=== PATIENT | female | born 2000 | race Caucasian/White ===

== ENCOUNTER 2021-03-23 15:27 | Emergency (ER) | payer OTHER ==
[~2021-03-23] VITALS: Ht 401.3 cm; Wt 160.6 kg
[2021-03-23 16:10] VITALS: BP 125/77
[2021-03-23] MEDS ORDERED: CYCLOBENZAPRINE5 MG PO (17:53)
== END 2021-03-23 19:22 | disposition home or self-care (01) ==
LOC: ER 15:27
DX: S16.1XXA Strain of muscle, fascia and tendon at neck level, initial encounter (principal); M62.830 Muscle spasm of back; M25.512 Pain in left shoulder; J45.909 Unspecified asthma, uncomplicated; V49.88XA Car occupant (driver) (passenger) injured in other specified transport accidents, initial encounter; Y93.89 Activity, other specified; Y92.413 State road as the place of occurrence of the external cause; Y99.9 Unspecified external cause status

== ENCOUNTER 2021-04-25 15:48 | Inpatient (IN) | payer OTHER ==
[~2021-04-25] VITALS: Ht 182.9 cm; Wt 165.8 kg
[~2021-04-25 15:48] MED LIST: CYCLOBENZAPRINE5 MG PO
[2021-04-25 16:04] VITALS: BP 137/86
[2021-04-25 19:02] LABS: ABSOLUTE NEUTROPHILS 5.5 thou/uL (1.4-8.2); BASOPHILS 0.6 % (0.0-2.0); EOSINOPHILS 10.3 % (0.0-3.0); HEMATOCRIT 33.9 % (37.0-47.0); HEMOGLOBIN 10.7 gm/dL (12.0-15.0); LYMPHOCYTES 13.4 % (24.0-44.0); MCH 23.7 pg (26.0-34.0); MCHC 31.5 g/dL (28.0-37.0); MCV 75.4 fL (80.0-100.0); MONOCYTES 10.2 % (1.0-8.0); PLATELET COUNT 316 thou/uL (150-400); POLYS 65.5 % (36.0-66.0); RDW 15.2 % (10.5-14.5); WBC 8.3 thou/uL (4.0-11.0)
[2021-04-25 19:08] LABS: ANION GAP 5 mmol/L (7-16); BUN 8 mg/dL (7-18); CALCIUM 8.2 mg/dL (8.5-10.1); CHLORIDE 105 mmol/L (98-107); CO2 30 mmol/L (21-32); CREATININE 0.8 mg/dL (0.6-1.0); GLUCOSE 88 mg/dL (74-106); POTASSIUM 3.7 mmol/L (3.5-5.1); SODIUM 140 mmol/L (136-145)
[2021-04-25 19:18] LABS: ALBUMIN 3.1 g/dL (3.4-5.0); SGOT 23 U/L (15-37); SGPT 26 U/L (14-59); TOTAL BILIRUBIN 0.2 mg/dL (0.2-1.0); TOTAL PROTEIN 7.3 g/dL (6.4-8.2); TROPONIN-I <0.06 ng/mL (<0.06)
[2021-04-25 23:14] LABS: BE(vivo) 0.7 mmol/L (-2 to +3); HCO3 26.1 mmol/L (22.0-26.0); PCO2 44.9 mmHg (35.0-45.0); PO2 67.6 mmHg (80.0-100.0); pH 7.382 (7.360-7.450); sO2 93.1 % (92.0-98.0)
[2021-04-26] VITALS (8 sets, daily range): BP systolic 136–168; BP diastolic 86–133
--- NOTE | 2021-04-26 04:40 | NUR ---
NOTIFIED BASSAM MADRID NP OF PATIENT SATURATION LEVEL DROPPING TO 37% ON VENTI MASK. NOTIFIED THAT PATIENT WHILE SLEEPING IS UNABLE TO MAINTAIN SATURAION REGARDLESS OF NC 4.0 OR VENTI MASK. EXERCISE PHYSIOLOGY PROFESSOR PLACING CONSULT FOR PULMONARY AND BIPAP WHILE SLEEPING. RT NOTIFIED FOR BIPAP PLACEMENT
[2021-04-26] MEDS ORDERED: PROAIR HFA8.5 GM INH (06:39)
--- NOTE | 2021-04-26 07:38 | EKG ---
[place] [address] [facility] [place] [address] ELECTROCARDIOGRAM REPORT Name: LILY BUSBY Room #: 204-P [facility] IN M.R.#: [id number] Admission: 04/25/21 Attend Phys: Zaida Jones Discharge: Date of : 01 Report #: [id number] [facility] ED Test Date: 2021-04-25 Test Time: 16:07:18 Pat Name: LILY BUSBY Department: Room: [facility] [place] Gender: F Maintenance Data Analyst: KRISTI : 2000 Requested By: Torri Terry Order Number: [id number] MD: Roney Arora Measurements Intervals [place] Rate: 121 P: 67 UT: 156 QRS: 49 QRSD: 80 T: 18 QT: 317 QTc: 450 Interpretive Statements Sinus tachycardia Probable left atrial enlargement No previous ECG available for comparison Electronically Signed On 04-26-2021 7:38:45 CDT by Roney Arora [email or web address] <ELECTRONICALLY SIGNED> By: Roney Arora MD, [facility] 04/26/21 0738 [id number] [id number] Roney Arora MD, FACC /EPI
--- NOTE | 2021-04-26 07:49 | NUR ---
ARRIVED PER CART FROM ER AT 0545. DENIES COMPLAINTS OF PAIN. STATES SHORTNESS OF AIR IS BETTER LONG O2 ON. ORIENTED TO ROOM AND FLOOR POLICIES. UP WITH STEADY GAIT TO BATHROOM. REVIEWED PLAN OF CARE FOR NOC. CONTINUE TO ASSES.
[2021-04-26 08:49] LABS: HEMATOCRIT 36.2 % (37.0-47.0); HEMOGLOBIN 11.5 gm/dL (12.0-15.0); MCHC 31.7 g/dL (28.0-37.0); MCV 75.6 fL (80.0-100.0); RBC 4.79 mil/uL (4.20-5.00); RDW 14.9 % (10.5-14.5); WBC 4.5 thou/uL (4.0-11.0)
[2021-04-26 09:03] LABS: ALBUMIN 3.1 g/dL (3.4-5.0); CALCIUM 8.5 mg/dL (8.5-10.1); CREATININE 0.7 mg/dL (0.6-1.0); POTASSIUM 3.9 mmol/L (3.5-5.1); TOTAL BILIRUBIN 0.2 mg/dL (0.2-1.0); TOTAL PROTEIN 7.8 g/dL (6.4-8.2)
[2021-04-26 23:52] LABS: URINE BILIRUBIN NEGATIVE (Negative); URINE BLOOD 2+ (Negative); URINE CLARITY CLEAR; URINE COLOR YELLOW; URINE GLUCOSE-RANDOM* NEGATIVE (Negative); URINE KETONES NEGATIVE (Negative); URINE LEUKOCYTES-REFLEX NEGATIVE (Negative); URINE NITRITE-REFLEX NEGATIVE (Negative); URINE PROTEIN (DIPSTICK) NEGATIVE (Negative); URINE UROBILINOGEN 0.2 E.U./dl (0.2-1.0)
[2021-04-27 00:45] VITALS: BP 143/99
[2021-04-27 01:26] LABS: BACTERIA-REFLEX 1-9 Few /HPF (None Seen); CASTS None Seen /LPF (None Seen); CRYSTALS None Seen /LPF (None Seen); SQUAMOUS 0-3 Few /LPF (0-3); URINE RBC 1-2 Rare /HPF (NONE SEEN); URINE WBC-REFLEX 0-5 Rare /HPF (0-5)
[2021-04-27 03:15] VITALS: BP 144/98
[2021-04-27 07:25] VITALS: BP 135/90
--- NOTE | 2021-04-27 07:42 | NUR ---
SLEPT MOST OF SHIFT. UP AD ALEE IN ROOM. ON PERIOD. DENIES COMPLAINTS OF PAIN OR INCREASING SHORTNESS OF AIR. ON 2L/NC. STATES IS FEELING BETTER. WORKING ON GOALS AND PLAN OF CARE FOR NOC. CONTINUE TO ASSES CLOSELY.
--- NOTE | 2021-04-27 10:32 | 2DMMODE ---
[facility] [place] [address] 2 D/M-MODE ECHOCARDIOGRAM Name: LILY BUSBY Room #: 204-P ADM IN M.R.#: [id number] Admission: 04/25/21 Attend Phys: Umesh Peña MD Discharge: Date of : 01 Report #: [id number] REPORT FOR: cc: FAM - Family physician unknown FAM - Family physician unknown Roney Arora MD [facility] ~ APPROVED REPORT Study performed: 04/27/2021 09:40:40 EXAM: Comprehensive 2D, Doppler, and color-flow Echocardiogram Patient Location: Bedside Room #: 204 Status: routine BSA: 2.70 HR: 96 bpm BP: 135/90 mmHg Rhythm: NSR Other Information Study Quality: Adequate Indications SOA 2D Dimensions RVDd: 31.70 mm IVSd: 12.18 (7-11mm) LVOT Diam: 22.53 (18-24mm) LVDd: 52.49 mm PWd: 11.92 (7-11mm) Ascending Ao: 31.36 (22-36mm) LVDs: 35.85 (25-40mm) Aortic Root: 26.10 mm IVC: 20.00 mm Volumes Left Atrial Volume (Systole) Single Plane 4CH: 60.44 mL Single Plane 2CH: 45.64 mL LA ESV Index: 21.00 mL/m2 Aortic Valve AoV Peak Chris.: 1.98 m/s AO Peak Gr.: 15.68 mmHg LVOT Max P.18 mmHg LVOT Max V: 1.24 m/s RAMIN Vmax: 2.50 cm2 [facility] [address] [place] [address] 2 D/M-MODE ECHOCARDIOGRAM Name: LILY BUSBY Room #: 204-P [facility] IN [facility]#: [id number] Admission: 04/25/21 Attend Phys: Umesh Peña MD Discharge: Date of : 01 Report #: [id number] Mitral Valve E/A Ratio: 1.1 MV Decel. Time: 161.74 ms MV E Max Chris.: 1.11 m/s MV A Chris.: 1.05 m/s MV PHT: 46.91 ms IVRT: 78.43 ms Pulmonary Valve PV Peak Chris.: 1.23 m/s PV Peak Gr.: 6.01 mmHg Pulmonary Vein P Vein S: 0.61 m/s P Vein A: 0.37 m/s P Vein D: 0.43 m/s P Vein A Dur.: 71.5 msec P Vein S/D Ratio: 1.42 Tricuspid Valve TR Peak Chris.: 2.96 m/s RAP Estimate: 5.00 mmHg TR Peak Gr.: 35.11 mmHg PA Pressure: 40.00 mmHg Left Ventricle The left ventricle is normal size. There is normal LV segmental wall motion. Mild concentric left ventricular hypertrophy. The left ventricular systolic function is normal. The left ventricular ejection fraction is within the normal range. LVEF is 60-65%. The left ventricular diastolic function is normal. Right Ventricle The right ventricle is normal size. The right ventricular systolic function is normal. Atria The left atrium size is normal. The right atrium size is normal. Aortic Valve The aortic valve is normal in structure. No aortic regurgitation is present. There is no aortic valvular stenosis. Mitral Valve The mitral valve is normal in structure. There is no mitral valve regurgitation noted. No evidence of mitral valve stenosis. Tricuspid Valve The tricuspid valve is normal in structure. Trace to mild tricuspid [facility] [address] [place] [address] 2 D/M-MODE ECHOCARDIOGRAM Name: LILY BUSBY Room #: 204-P [facility] IN M.R.#: [id number] Admission: 04/25/21 Attend Phys: Umesh Peña MD Discharge: Date of : 01 Report #: [id number] regurgitation. PAP is estimated at 40 mmHg. Pulmonic Valve The pulmonary valve is normal in structure. There is no pulmonic valvular regurgitation. Great Vessels The aortic root is normal in size. IVC is normal in size and collapses >50% with inspiration. Pericardium There is no pericardial effusion. <Conclusion> Normal left ventricular size with mild concentric hypertrophy Ejection fraction 60% Abnormal right ventricular size/function Normal atrial size Normal aortic/mitral valve structure and function Mild tricuspid valve insufficiency Pulmonary systolic pressure estimated 40 mmHg No pericardial effusion Normal aortic root size. <ELECTRONICALLY SIGNED> By: Roney Arora MD, FACC 04/27/21 1031 1031 1031 Roney Arora MD, FACC /INF
--- NOTE | 2021-04-27 10:45 | NUR ---
Assess due to pt with BMI 47.5/extreme class III obesity. admit with SOA. Covid negative. No hx diabetes however BG 125-144 with steroids and on ss insulin. Pt voiced no dietary questions or concerns, aware of limited added sugars and excessive carb foods while on steroids. Low nutrition risk
[2021-04-27 11:18] VITALS: BP 141/72
[2021-04-27 15:37] VITALS: BP 134/88
--- NOTE | 2021-04-27 19:59 | NUR ---
ASSUMED CARE SHIFT CHANGE. VSS. DENIES PAIN. O2 SATS WNL 2-4L O2. PT CURRENTLY ON 4L. SCHED BREATHING TREATMENTS CROW WELL. UP AD ALEE CROW WELL. MOTHER AT BEDSIDE THROUGHOUT SHIFT. UPDATED ON POC. CONT POC, DC ONCE MEDICALLY STABLE. DENIES NEEDS CURRENTLY. REPORT PASSED TO DESTINI WOLFE.
[2021-04-27 20:03] VITALS: BP 126/81
[2021-04-28 01:06] LABS: HIV ANTIBODY Non Reactive (Non Reactive)
--- NOTE | 2021-04-28 03:14 | NUR ---
SLEPT PART OF SHIFT. UP WATCHING TV PART OF SHIFT. WORKING ON GOALS AND PLAN OF CARE FOR NOC. UP IN ROOM. SR WITH SLEEP, ST 100-115 WHILE AWAKE. CONTINUE TO ASSES CLOSELY.
[2021-04-28 03:22] LABS: ABSOLUTE NEUTROPHILS 9.7 thou/uL (1.4-8.2); BASOPHILS 0.1 % (0.0-2.0); HEMATOCRIT 34.7 % (37.0-47.0); HEMOGLOBIN 10.7 gm/dL (12.0-15.0); LYMPHOCYTES 11.7 % (24.0-44.0); MCH 23.3 pg (26.0-34.0); MCHC 30.9 g/dL (28.0-37.0); MCV 75.3 fL (80.0-100.0); MONOCYTES 4.1 % (1.0-8.0); PLATELET COUNT 381 thou/uL (150-400); POLYS 84.1 % (36.0-66.0); RDW 15.2 % (10.5-14.5); WBC 11.5 thou/uL (4.0-11.0)
[2021-04-28 04:53] VITALS: BP 132/76
[2021-04-28 07:41] VITALS: BP 144/105
[2021-04-28 11:19] VITALS: BP 148/102
[2021-04-28 15:24] VITALS: BP 135/91
--- NOTE | 2021-04-28 17:01 | NUR ---
ASSESSMENT CHARTED. MEDS PER FIOR MARIA DIET AND FLUIDS. UP AD ALEE IN ROOM PORTABLE TANK PLACED IN ROOM FOR PATIENT TO AMBULATE IN THE HALLS. ACCUCHECKS CHARTED - NO COVERAGE REQUIRED. PT SOB WITH EXERTION. PT WITH LOOSE COUGH CLEAR SPUTUM AT TIMES. MOTHER INTO VISIT - NO CO'S AT THE PRESENT TIME.
[2021-04-28 20:10] VITALS: BP 148/96
[2021-04-29 04:30] VITALS: BP 139/81
--- NOTE | 2021-04-29 05:41 | NUR ---
ASSUME CARE 1900. PT/VITALS STABLE. DENIES ANY PAIN. GOOD ENDURANCE TO ACTIVITY WITH MILD SOB NOTED. USES O2 AT 2L FOR ACTIVITY WITH NO DISTRESS NOTED. OXYGEN TITRATED THROUGH THE NIGHT. PT NOW AT 1L AND TOLERATING WELL. NO DISTRESS NOTED. SR ON MONITOR. ASSESSMENT CHARTED. PROGRESSING WELL WITH POC. PLAN IS TO CONTINUE WITH ABX THERAPY/INCREASE ACTIVITY LEVEL/MONITOR RESP FUNCTION FOR IMPROVEMENT. WILL CONTINUE TO MONITOR AND FOLLOW WITH POC
[2021-04-29 07:20] VITALS: BP 141/94; BP 159/97
[2021-04-29] MEDS ORDERED: PREDNISONE 20 M20 M1 PO (14:52)
[2021-04-29] MEDS ORDERED: ZITHROMAX500 MG PO (14:52)
[2021-04-29] MEDS ORDERED: ACETAMINOPHEN325 M1 PO (14:52)
[2021-04-29] MEDS ORDERED: CEFUROXIME500 MG PO (14:52)
[2021-04-29] MEDS ORDERED: MUCINEX600 MG PO (14:52)
[2021-04-29 15:56] VITALS: BP 141/94
[2021-04-29] MEDS ORDERED: PROAIR HFA8.5 GM INH (16:12)
--- NOTE | 2021-04-29 16:20 | NUR ---
ASSESSMENT CHARTED, MEDS PER FIOR - CROW DIET AND FLUIDS. NO CO'S OF PAIN OR NAUSEA. UP AD ALEE ON THE UNIT. PT SAT WITH AMBULATION 94% ON ROOM AIR. PT HOME THIS AFTERNOON. INSTRUCTION RE HOME MEDS/ CARE AND FOLLOW UP GIVNE TO PATIENT - STATED UNDERSTANDINGH OF INSTRUCTION GIVEN. HOME VIA PVT VEHICLE ACCOMAPNIED BY MOTHER - NO CO'S AT TIME OF D/C.
== END 2021-04-29 16:24 | disposition home or self-care (01) | DRG 177 ==
LOC: ER 15:48 → EROBS 23:43 → 2N 23:43
PROVIDERS: Emergency Medicine; Nurse Practitioner Family; Specialist; ADMIT Internal Medicine; ATTEND Internal Medicine
DX: U07.1 COVID-19 (principal); J96.01 Acute respiratory failure with hypoxia; J12.82 Pneumonia due to coronavirus disease 2019; J45.901 Unspecified asthma with (acute) exacerbation; Z68.42 Body mass index [BMI] 45.0-49.9, adult; D72.10 Eosinophilia, unspecified; E66.01 Morbid (severe) obesity due to excess calories; Z79.899 Other long term (current) drug therapy
CPT/HCPCS: 10081

== ENCOUNTER 2021-08-21 05:28 | Emergency (ER) | payer OTHER ==
[~2021-08-21] VITALS: Ht 177.8 cm; Wt 158.8 kg
[~2021-08-21 05:28] MED LIST changes: +ACETAMINOPHEN325 M1 PO; +CEFUROXIME500 MG PO; +MUCINEX600 MG PO; +PREDNISONE 20 M20 M1 PO; +PROAIR HFA8.5 GM INH; +ZITHROMAX500 MG PO
[2021-08-21] MEDS ORDERED: PROAIR HFA8.5 GM INH (05:48)
[2021-08-21 06:15] VITALS: BP 157/68
== END 2021-08-21 06:23 | disposition home or self-care (01) ==
LOC: ER 05:28
PROVIDERS: Student in an Organized Health Care Education/Training Program
DX: J02.9 Acute pharyngitis, unspecified (principal); Z20.822 Contact with and (suspected) exposure to COVID-19; J45.909 Unspecified asthma, uncomplicated; Z79.51 Long term (current) use of inhaled steroids; Z79.891 Long term (current) use of opiate analgesic; Z79.1 Long term (current) use of non-steroidal anti-inflammatories (NSAID); Z79.899 Other long term (current) drug therapy